=== PATIENT | male | born 1965 | race Caucasian/White ===

== ENCOUNTER 2024-08-04 12:30 | Inpatient (IN) | payer BC ==
[~2024-08-04] VITALS: Ht 172.7 cm; Wt 157.6 kg
[~2024-08-04 12:30] MED LIST: AMLO-354 PO; HYDR-3490 PO; LORA2CON5 PO; MAGN400C2 PO; QC F0.52 PO; RA T500C2 PO
[2024-08-13] VITALS (7 sets, daily range): BP systolic 149–165; BP diastolic 73–81; TEMP 97–98.1; O2SAT 91–95
[2024-08-13] MEDS ORDERED: MIDAZOLAM INJ 2MG/2ML VIAL As Ordered ONE (09:50)
[2024-08-13] MEDS ORDERED: KETAMINE HCL 200MG/20ML VIAL As Ordered ONE (09:50)
[2024-08-13] MEDS ORDERED: ONDANSETRON 4MG 2ML VIAL As Ordered ONE (09:51)
[2024-08-13] MEDS ORDERED: ROCURONIUM BROMIDE 50MG/5ML VIAL As Ordered ONE (09:51)
[2024-08-13] MEDS ORDERED: LIDOCAINE 2% 100MG/5ML SDV (FOR ANES.) As Ordered ONE (09:51)
[2024-08-13] MEDS ORDERED: propofoL 200 MG/20 ML VIAL As Ordered ONE (09:51)
[2024-08-13] MEDS ORDERED: SUGAMMADEX SODIUM 500 MG/5 ML VIAL (BRIDION) As Ordered ONE (09:51)
[2024-08-13] MEDS ORDERED: ACETAMINOPHEN 1000MG/100ML IV BAG As Ordered ONE (09:51)
[2024-08-13] MEDS ORDERED: fentaNYL 100 MCG/2 ML INJECTION As Ordered ONE (09:51)
[2024-08-13] MEDS: LR 1,000 ML IV SCH (10:55)
[2024-08-13] MEDS ORDERED: ACETAMINOPHEN 325 MG TAB PO PRN (11:40)
[2024-08-13] MEDS ORDERED: ONDANSETRON 4MG 2ML VIAL IV PRN ×2 (11:40→16:30)
[2024-08-13 11:48] LABS: INR 0.96; PROTHROMBIN TIME 13.1 SECONDS (12.5-14.5)
[2024-08-13] MEDS: ceFAZolin SOD 2 GM in IV 1 EA IV ONE (12:00)
[2024-08-13] MEDS: ceFAZolin SOD 1 GM in DEXTROSE 5% (D5W) ADV/MINI-BAG 50 ML IV ONE (12:00)
[2024-08-13] MEDS ORDERED: HYDROmorphone HCL 2MG/ML 1ML VIAL As Ordered ONE (12:50)
[2024-08-13] MEDS ORDERED: dexmedeTOMIDine (4MCG/ML)200MCG/50ML BTL (PRECEDEX) As Ordered ONE (13:47)
[2024-08-13] MEDS: ceFAZolin 2 GM/D5W 50 ML IV BAG As Ordered ONE (16:00)
[2024-08-13] MEDS: ceFAZolin 1GM VIAL As Ordered ONE (16:00)
[2024-08-13] MEDS ORDERED: fentaNYL 100 MCG/2 ML INJECTION IV PRN (16:30)
[2024-08-13] MEDS: MANNITOL 25% 12.5GM 50ML VIAL As Ordered ONE (16:32)
[2024-08-13] MEDS: LIDOCAINE 1% SDV 30ML VIAL As Ordered ONE (16:46)
[2024-08-13] MEDS: oxyCODONE 5MG TAB PO PRN (17:39)
[2024-08-13] MEDS: NS (Normal Saline) 0.9% 1,000 ML IV SCH (18:05)
[2024-08-13 18:28] LABS: HEMATOCRIT 45.8 % (42.0-52.0); HEMOGLOBIN 15.3 g/dl (13.5-17.5); MEAN CORPUSCULAR HEMOGLOBIN 29.4 pg (27.0-33.0); MEAN CORPUSCULAR HGB CONC 33.4 g/dl (32.0-36.5); MEAN CORPUSCULAR VOLUME 88.1 fl (80.0-96.0); PLATELET COUNT, AUTOMATED 208 10^3/uL (150-450); WHITE BLOOD COUNT 17.1 10^3/uL (4.0-10.0)
[2024-08-13 18:43] LABS: BLOOD UREA NITROGEN 20 MG/DL (9-23); CALCIUM LEVEL 8.8 MG/DL (8.5-10.1); CARBON DIOXIDE LEVEL 25 MMOL/L (20-31); CHLORIDE LEVEL 102 MMOL/L (98-107); CREATININE FOR GFR 1.28 MG/DL (0.70-1.30); GLOMERULAR FILTRATION RATE > 60.0 (>56); GLUCOSE, FASTING 169 MG/DL (60-100); POTASSIUM SERUM 3.9 MMOL/L (3.5-5.1); SODIUM LEVEL 139 MMOL/L (136-145)
[2024-08-13] MEDS: ceFAZolin SOD 2 GM in DEXTROSE 5% (D5W) ADV/MINI-BAG 50 ML IV SCH (20:15)
[2024-08-13] MEDS: DOCUSATE SODIUM 100MG CAPSULE PO SCH (20:15)
[2024-08-13] MEDS: oxyBUTYnin *DITROPAN XL* 5 MG TABCR PO SCH (20:15)
[2024-08-13] MEDS: PHENAZOPYRIDINE 100 MG TAB PO SCH (21:42)
[2024-08-13] MEDS: PERCOCET 5MG/325MG TAB PO PRN (21:43)
[2024-08-14] VITALS (8 sets, daily range): BP systolic 115–141; BP diastolic 65–75; TEMP 97.5–99; O2SAT 92–96
[2024-08-14] MEDS ORDERED: METOCLOPRAMIDE INJ 10MG/2ML VIAL IV PRN ×2 (00:15→01:00)
[2024-08-14] MEDS: PERCOCET 5MG/325MG TAB PO PRN (01:49)
[2024-08-14 06:41] LABS: HEMATOCRIT 45.7 % (42.0-52.0); HEMOGLOBIN 15.1 g/dl (13.5-17.5); MEAN CORPUSCULAR HEMOGLOBIN 29.4 pg (27.0-33.0); MEAN CORPUSCULAR VOLUME 88.9 fl (80.0-96.0); PLATELET COUNT, AUTOMATED 198 10^3/uL (150-450); RED BLOOD COUNT 5.14 10^6/uL (4.30-6.10); WHITE BLOOD COUNT 12.1 10^3/uL (4.0-10.0)
[2024-08-14 06:52] LABS: CALCIUM LEVEL 8.3 MG/DL (8.5-10.1); CREATININE FOR GFR 1.39 MG/DL (0.70-1.30); GLOMERULAR FILTRATION RATE 55.7 (>56); POTASSIUM SERUM 3.9 MMOL/L (3.5-5.1)
[2024-08-14] MEDS: OLMESARTAN MEDOXOMIL 20 MG TAB (BENICAR) PO SCH (08:51)
[2024-08-14] MEDS: FLUBLOK(EGGFREE) TRIVAL(24-25) VACCINE PF 0.5ML SYRINGE 18YRS & OLDER IM.IMMUN ONE (09:01)
[2024-08-14] MEDS ORDERED: PERCOCET PO (15:42)
[2024-08-14] MEDS ORDERED: COLA100C5 PO (15:42)
[2024-08-14] MEDS: PERCOCET 5MG/325MG TAB PO ONE (16:16)
== END 2024-08-14 16:34 | disposition home or self-care (01) | DRG 442 ==
LOC: M OR 08-13 09:51 → M MSPAV 08-13 18:24
PROVIDERS: ADMIT Urology; ATTEND Urology
PROC: 8E0W4CZ Robotic Assisted Procedure of Trunk Region, Percutaneous Endoscopic Approach (ICD-10-PCS; 2024-08-13)
PROC: 0TT04ZZ Resection of Right Kidney, Percutaneous Endoscopic Approach (ICD-10-PCS; principal; 2024-08-13 11:45)
DX: C64.1 Malignant neoplasm of right kidney, except renal pelvis (principal); R31.0 Gross hematuria; G47.33 Obstructive sleep apnea (adult) (pediatric); I10 Essential (primary) hypertension; F41.8 Other specified anxiety disorders; Z79.899 Other long term (current) drug therapy; Z87.891 Personal history of nicotine dependence

== ENCOUNTER → 2024-08-27 | Outpatient (CLI) | payer BC ==
[~2024-08-27] MED LIST changes: +COLA100C5 PO; +PERCOCET PO
[2024-08-27 17:26] LABS: HEMATOCRIT 46.3 % (42.0-52.0); HEMOGLOBIN 15.3 g/dl (13.5-17.5); MEAN CORPUSCULAR HEMOGLOBIN 29.5 pg (27.0-33.0); MEAN CORPUSCULAR VOLUME 89.4 fl (80.0-96.0); PLATELET COUNT, AUTOMATED 257 10^3/uL (150-450); RED BLOOD COUNT 5.18 10^6/uL (4.30-6.10)
[2024-08-27 17:54] LABS: CALCIUM LEVEL 8.9 MG/DL (8.5-10.1); CREATININE FOR GFR 1.4 MG/DL (0.70-1.30); GLOMERULAR FILTRATION RATE 55.2 (>56); POTASSIUM SERUM 4.6 MMOL/L (3.5-5.1)
== END ==
LOC: M PLALAB 11:09
PROVIDERS: ATTEND Physician Assistant
DX: C64.1 Malignant neoplasm of right kidney, except renal pelvis (principal)